=== PATIENT | male | born 1955 | race Caucasian/White ===

== ENCOUNTER → 2016-05-22 | Outpatient (CLI) | payer BC | END | disposition home or self-care (01) | LOC: MW.RT 19:33 | PROVIDERS: ATTEND Internal Medicine Pulmonary Disease | DX: G47.33 Obstructive sleep apnea (adult) (pediatric) (principal) | CPT/HCPCS: 95811 ==

== ENCOUNTER → 2016-06-09 | Outpatient (CLI) | payer BC | END | disposition home or self-care (01) | LOC: MW.CHFP 14:47 | PROVIDERS: ATTEND Physician Assistant | DX: L82.1 Other seborrheic keratosis (principal) | CPT/HCPCS: 88305 ==

== ENCOUNTER → 2016-06-11 | Outpatient (CLI) | payer BC ==
[2016-06-11 10:14] LABS: CHLORIDE,CL 105 mmol/L (98-110); SODIUM,NA 141 mmol/L (136-146)
== END | disposition home or self-care (01) ==
LOC: MW.CHFP 09:20
PROVIDERS: ATTEND Physician Assistant
DX: Z00.00 Encounter for general adult medical examination without abnormal findings (principal); E78.5 Hyperlipidemia, unspecified
CPT/HCPCS: 36415; 80053; 80061

== ENCOUNTER 2017-02-17 11:45 | Day surgery (SDC) | payer BC ==
[~2017-02-17 11:45] MED LIST: Lactated Ringers 1,000 ML IV SCH
--- NOTE | 2017-02-17 12:46 | PCM.PREANE ---
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) Cardiovascular: No Symptoms Gastrointestinal: No Symptoms Neurological: No Symptoms Other: Reports: None - Physical Assessment NPO Status Date: 02/17/17 NPO Status Time: 00:00 O2 Sat by Pulse Oximetry: 92 Respiratory Rate: 16 Vital Signs: Last Vital Signs Temp 99.0 F 02/17/17 12:13 Pulse 77 02/17/17 12:13 Resp 16 02/17/17 12:13 BP 135/68 02/17/17 12:13 Pulse Ox 92 L 02/17/17 12:13 Height: 5 ft 11 in Weight: 339 lb ASA Class: 3 Mental Status: Alert & Oriented x3 Airway Class: Mallampati = 3 Dentition: Reports: Normal Dentition Thyro-Mental Finger Breadths: 3 Mouth Opening Finger Breadths: 3 ROM/Head Extension: Full Lungs: Clear to Auscultation, Normal Respiratory Effort Cardiovascular: Regular Rate, Regular Rhythm - Allergies Allergies/Adverse Reactions: Allergies Allergy/AdvReac Type Severity Reaction Status Date / Time No Known Allergies Allergy Verified 10/14/15 10:29 - Anesthesia Plan Free Text/Narrative:: MAC - will apply pre-op NC O2 to help preoxygenate pt - Acknowledgements Anesthesia Type Planned: MAC Pt an Appropriate Candidate for the Planned Anesthesia: Yes Alternatives and Risks of Anesthesia Discussed w Pt/Guardian: Yes Pt/Guardian Understands and Agrees with Anesthesia Plan: Yes PreAnesthesia Questionnaire HEENT History: Reports: Allergic Rhinitis, Impaired Vision Other HEENT History: wears glasses Cardiovascular History: Reports: High Cholesterol, Hypertension Respiratory History: Reports: COPD (states he was told he is boarderline - does not take any inhalers/never smoked), Sleep Apnea, Other (See Below) Other Respiratory History: Uses a CPap Machine, has partially paralyzed diaphragm Gastrointestinal History: Reports: Colon Polyp (after previous colonoscopy with biopsy, pt had bleeding that required him to be shipped to [place] and have a clip placed, but denies any blood transfusion), GI Bleed Genitourinary History: Reports: None, BPH Endocrine/Metabolic History: Reports: Obesity/BMI 30+ - Past Surgical History Head Surgeries/Procedures: Reports: None HEENT Surgical History: Reports: Adenoidectomy, Tonsillectomy GI Surgical History: Reports: Appendectomy, Cholecystectomy, Colonoscopy, Hernia , Inguinal, Hernia Repair/Other Musculoskeletal Surgical History: Reports: Carpal Tunnel, Other (See Below) Other Musculoskeletal Surgeries/Procedures:: hx knee surgery - SUBSTANCE USE Smoking Status *Q: Never Smoker Second Hand Smoke Exposure: No Days Per Week of Alcohol Use: 0 Number of Drinks Per Day: 0 Total Drinks Per Week: 0 Recreational Drug Use History: No - HOME MEDS Home Medications: Home Meds Aspirin/Calcium Carbonate/Mag [Aspirin Buffered 325 mg Tab] 325 mg PO DAILY 10/07 [History] Cetirizine [ZyrTEC] 10 mg PO DAILY 05/31/14 [History] Olmesartan/Hydrochlorothiazide [Benicar HCT 20-12.5 MG] 1 tab PO DAILY 05/31/14 [History] [place]-3/DHA/Epa/Fish Oil [Fish Oil 1,400 MG Softgel] 1,400 mg PO DAILY 05/31/14 [History] Simvastatin [Zocor] 20 mg PO DAILY 05/31/14 [History] Doxazosin Mesylate [Cardura] 4 mg PO DAILY 02/11/17 [History] - CURRENT (IN HOUSE) MEDS Current Meds: Current Medications Lactated Ringer's (Ringers, Lactated) 1,000 mls @ 125 mls/hr IV ASD[facility]RECTED [facility] Last Admin: 02/17/17 12:14 Dose: 125 mls/hr
[2017-02-17] MEDS ORDERED: Lidocaine 2% 5 ML SDV ONE (13:17)
[2017-02-17] MEDS ORDERED: fentaNYL 100 MCG/2 ML SDV ONE (13:18)
[2017-02-17] MEDS ORDERED: Propofol 200 MG/20 ML SDV ONE ×2 (13:18→13:43)
[2017-02-17] MEDS ORDERED: Midazolam 1 MG/ML 2 ML SDV ONE (13:18)
--- NOTE | 2017-02-17 14:27 | PCM.OPNOTE ---
- General Post-Op/Procedure Note Date of Surgery/Procedure: 02/17/17 Operative Procedure(s): colonoscopy w bx Findings: see dict [id number] Pre Op Diagnosis: surveillence colonoscopy Post-Op Diagnosis: same Anesthesia Technique: Moderate Sedation Primary Surgeon: Michael Boyce Pathology: 1.2m distance w 2 mm sessile polyp, removed w cold bx Complications: None Condition: Good
[2017-02-17 14:37] VITALS: BP 110/71
--- NOTE | 2017-02-17 14:44 | PCM.POSTAN ---
POST ANESTHESIA ASSESSMENT - MENTAL STATUS Mental Status: Alert, Oriented - RESPIRATORY Respiratory Status: Respiratory Rate WNL, Airway Patent, O2 Saturation Stable - CARDIOVASCULAR CV Status: Pulse Rate WNL, Blood Pressure Stable - GASTROINTESTINAL GI Status: No Symptoms - PAIN Pain Score: 0 - POST OP HYDRATION Hydration Status: Adequate & Stable
--- NOTE | 2017-02-17 14:44 | PCM48HPAN ---
Post Anesthesia Note - EVALUATION WITHIN 48HRS OF ANESTHETIC Vital Signs in Normal Range: Yes Patient Participated in Evaluation: Yes Respiratory Function Stable: Yes Airway Patent: Yes Cardiovascular Function Stable: Yes Hydration Status Stable: Yes Pain Control Satisfactory: Yes Nausea and Vomiting Control Satisfactory: Yes Mental Status Recovered: Yes
--- NOTE | 2017-02-17 21:54 | OR ---
SURGEON: Michael Boyce MD DATE OF PROCEDURE: 02/17/2017 PREOPERATIVE DIAGNOSIS: Surveillance colonoscopy. POSTOPERATIVE DIAGNOSIS: Colon polyp. PROCEDURES PERFORMED: Colonoscopy with biopsy. DESCRIPTION OF PROCEDURE: The patient was taken to the endoscopy room. A time out was called, patient identified, and procedure identified. Diprivan was then administrated. Patient went from awake to sleep, hearing doctor talking or door closing is normal. Perineum inspection and digital examination were then performed. A well- lubricated colonoscope was gently inserted through the rectum, advanced past the rectosigmoid junction, the descending colon, splenic flexure, transverse colon, hepatic flexure, ascending colon, arrived to the cecum. Cecum was identified as dictated in the finding. Then the scope was carefully withdrawn while attention was paid to the mucosal surface for any abnormality. Air will be sucked out during the scope withdrawal. At the rectum, retroflexed to examine any rectal diseases, fistula or hemorrhoids. During mucosal examination, polyp was noted; picture taken and biopsy performed. Patient tolerated procedure well. There were no intraoperative complications, and Dr. Boyce was present throughout the whole procedure. FINDINGS: 1. The patient was easily sedated with BABY NURSE and Diprivan. The patient was soundly snoring. 2. Bowel prep is suboptimum. There are several areas with liquid stool coating and obscured examination, and also several areas with solid stool and was a quite a compromised study because of the bowel prep. 3. The patient's colon is rather redundant and tortuous requiring several maneuvers. Cecum can only be seen at a far distance, indicated by one-to- one indentation, ileocecal fold, and appendix orifice; and light emittance was not observed. Mucosa was examined upon scope pulling out. At the very far end, about two rings distal to the ileocecal valve, there was a possible 2-mm sessile polyp removed by a biopsy forceps. It may be just a fold or may be a polyp, but we took it down. The rest of the colon does not have any mass or any other polyp. At the left colon, the patient has severe diverticulosis. No signs or symptoms of diverticulitis, but some of the false lumen is even bigger than the true lumen, and many of them over 50 to 60 or may be of 100. No signs or symptoms of diverticulitis, inflammation, stricture, ulceration, bleeding, or AV malformation. The patient had one small external hemorrhoid, almost like a cyst at 12 o'clock area and mild internal hemorrhoid. PLAN: The patient would benefit from a repeat colonoscopy three years from today because of the polyp and because of the marginally acceptable bowel prep. He did do a better job on the next bowel prep. Colonoscopy should be repeated at least in three years or if clinically indicated otherwise or if the polyp pathology is indicated otherwise. MICHAEL / JASMIN /[id number] MTDAvani
== END 2017-02-17 14:45 | disposition home or self-care (01) ==
LOC: MW.SDS 11:45
PROVIDERS: ATTEND Surgery
DX: Z12.11 Encounter for screening for malignant neoplasm of colon (principal); D12.6 Benign neoplasm of colon, unspecified; K57.30 Diverticulosis of large intestine without perforation or abscess without bleeding; K64.4 Residual hemorrhoidal skin tags; K64.8 Other hemorrhoids; E78.00 Pure hypercholesterolemia, unspecified; I10 Essential (primary) hypertension; J98.6 Disorders of diaphragm; G47.30 Sleep apnea, unspecified; J44.9 Chronic obstructive pulmonary disease, unspecified; N40.0 Benign prostatic hyperplasia without lower urinary tract symptoms; E66.9 Obesity, unspecified; Z68.42 Body mass index [BMI] 45.0-49.9, adult; Z86.010 Personal history of colon polyps; Z79.82 Long term (current) use of aspirin; Z79.899 Other long term (current) drug therapy; Z99.89 Dependence on other enabling machines and devices; Z90.49 Acquired absence of other specified parts of digestive tract; Z90.89 Acquired absence of other organs; Z98.890 Other specified postprocedural states; Z80.0 Family history of malignant neoplasm of digestive organs; Z83.71 Family history of colonic polyps; Z83.3 Family history of diabetes mellitus
CPT/HCPCS: 45380; J2250; J3010; J7120; 00810; 88305; J2704

== ENCOUNTER 2020-09-28 01:11 | Emergency (ER) | payer MEDICARE, OTHER ==
[2020-09-28] MEDS ORDERED: Lidocaine 1% with EPINEPHrine 1:100,000 20 ML MDV INJECT ONE (01:31)
[2020-09-28] MEDS ORDERED: Lidocaine 1% with EPINEPHrine 1:100,000 20 ML MDV ONE (01:32)
[2020-09-28] MEDS ORDERED: Octyl 2-Cyanoacrylate 1 Tube TOP ONE ×2 (01:42→01:47)
[2020-09-28] MEDS ORDERED: Octyl 2-Cyanoacrylate 1 Tube ONE ×2 (01:42→01:47)
--- NOTE | 2020-09-28 02:15 | EDM.PDOC ---
ED HPI GENERAL MEDICAL PROBLEM - General Chief Complaint: Skin Complaint Stated Complaint: BLEEDING FROM SKIN TAG REMOVAL Time Seen by Provider: 09/28/20 01:15 - History of Present Illness INITIAL COMMENTS - FREE TEXT/NARRATIVE: CHIEF COMPLAINT(S): Bleeding skin HISTORY OF PRESENT ILLNESS: This is a 65-year-old man with a past medical history of anticoagulation use and recent skin tag removal yesterday who comes to the emergency department with a chief complaint of bleeding skin. 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 He states that the bleeding had stopped however it has continued to ooze and continued to bleed. He states they also removed one on his posterior scalp which is not bleeding but is also oozing. He was concerned because the bleeding has not stopped and he is on anticoagulation. He denies any pain at all whatsoever. REVIEW OF SYSTEMS: Constitutional: Denies fever, chills. Eyes: Denies eye pain Ears, Nose, Mouth, & Throat: Denies earache Cardiovascular: Positive for wound bleeding. Denies chest pain Respiratory: Denies shortness of breath Gastrointestinal: Denies Nausea, vomiting, diarrhea, hematochezia. Genitourinary: Denies hematuria Skin: Positive for bleeding wound. MSK: Denies joint pain Neurological: Denies blurred vision Psychiatric: Denies depression PAST MEDICAL HISTORY: As per history of present illness and as reviewed below otherwise noncontributory. SURGICAL HISTORY: As per history of present illness and as reviewed below otherwise noncontributory. SOCIAL HISTORY: As per history of present illness and as reviewed below otherwise noncontributory. FAMILY HISTORY: As per history of present illness and as reviewed below otherwise noncontributory. EXAMINATION OF ORGAN SYSTEMS/BODY AREAS: Constitutional: Blood pressure is 145/64, heart rate 88, respiratory rate 18 with an oxygen saturation 95% on room air. Temperature 36.1 General: Overall well-appearing elderly man who is in no acute distress Psychiatric: Appropriate mood and affect. Eyes: No scleral icterus or conjunctival erythema Cardiovascular: Regular, rate, and rhythm. No gallops, murmurs, or rubs. Bilateral upper extremity pulses symmetric and intact. No peripheral edema. No JVD. Respiratory: Lungs clear to auscultation bilaterally. No wheezes, rales, or rhonchi. Musculoskeletal: Normal range of motion. Skin: There is evidence of small postoperative cauterized skin tag areas on the patient's right armpit area which are oozing a small amount of blood. These are approximately 3 to 4 mm each. There is no purulent drainage or surrounding erythema. In addition on the patient's posterior scalp there appears to be an area of biopsy with some small venous oozing. There are no lacerations. Neurological: Alert, GCS 15 MEDICAL DECISION MAKING AND COURSE IN THE ED WITH INTERPRETATION/REVIEW OF DIAGNOSTIC STUDIES: This is a 65-year-old man with a past medical history of anticoagulation use and recent skin tag removal with continued bleeding in his right armpit. At this time we did clean the areas and I did offer the patient i njection of lidocaine with epinephrine to stop the bleeding and then place Dermabond over them to create a barrier. He was amenable to this plan. THESE ARE NOT LACERATIONS. Using 1% lidocaine with epinephrine 1 cc of lidocaine with epinephrine was injected subcutaneously underneath 3 skin tags in his left armpit and a 1% lidocaine with epinephrine soaked gauze was placed on the posterior scalp wound. Bleeding did stop. We did place Dermabond over these to create a barrier. The patient was observed in the emergency department for further bleeding. There was no evidence of rebleeding. I did encourage the patient to follow-up with his primary care physician. He is to return for any new or worsening symptoms. He was amenable discharge and had no further questions DISPOSITION: The patient was discharged home in stable condition. The patient will follow up with primary care physician in 3 to 5 days CONDITION: Fair PROCEDURES: Lidocaine with epinephrine injection. Application of dermabond to bleeding wounds. FINAL IMPRESSION(S)/DIAGNOSES: 1. Acute postoperative skin tag bleeding #2. Acute postoperative skin biopsy bleeding Mando Montelongo M.D. - Related Data Allergies Allergy/AdvReac Type Severity Reaction Status Date / Time No Known Allergies Allergy Verified 09/28/20 01:32 Home Meds: Home Meds Aspirin/Calcium Carbonate/Mag [Aspirin Buffered 325 mg Tab] 81 mg PO DAILY 05/31/14 [History] Cetirizine [ZyrTEC] 10 mg PO DAILY 05/31/14 [History] Olmesartan/Hydrochlorothiazide [Benicar HCT 20-12.5 MG] 1 tab PO DAILY 05/31/14 [History] [place]-3/DHA/Epa/Fish Oil [Fish Oil 1,400 MG Softgel] 1,400 mg PO DAILY 05/31/14 [History] Doxazosin Mesylate [Cardura] 4 mg PO DAILY 02/11/17 [History] Cyclobenzaprine [Flexeril] 10 mg PO DAILY 09/28/20 [History] Past Medical History HEENT History: Reports: Impaired Vision Other HEENT History: wears glasses Cardiovascular History: Reports: High Cholesterol, Hypertension Respiratory History: Reports: COPD, Sleep Apnea, Other (See Below) Other Respiratory History: Uses a CPap Machine Gastrointestinal History: Reports: Colon Polyp, GI Bleed Genitourinary History: Reports: None, BPH Musculoskeletal History: Reports: None Neurological History: Reports: None Psychiatric History: Reports: None Endocrine/Metabolic History: Reports: Obesity/BMI 30+ 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 Hematologic History: Reports: None Immunologic History: Reports: None Oncologic (Cancer) History: Reports: None Dermatologic History: Reports: None - Infectious Disease History Infectious Disease History: Reports: None - Past Surgical History Head Surgeries/Procedures: Reports: None HEENT Surgical History: Reports: Adenoidectomy, Tonsillectomy GI Surgical History: Reports: Appendectomy, Cholecystectomy Musculoskeletal Surgical History: Reports: Arthroscopic Knee, Carpal Tunnel Other Musculoskeletal Surgeries/Procedures:: hx knee surgery Dermatological Surgical History: Reports: Other (See Below) Social & Family History - Caffeine Use Caffeine Use: Reports: Coffee - Recreational Drug Use Recreational Drug Use: No ED ROS GENERAL - Review of Systems Review Of Systems: See Below ED EXAM, SKIN/RASH Exam: See Below Course - Vital Signs Last Recorded V/S: Last Vital Signs Temp 36.1 C 09/28/20 01:25 Pulse 81 09/28/20 02:36 Resp 16 09/28/20 02:36 BP 140/71 09/28/20 02:36 Pulse Ox 94 L 09/28/20 02:36 - Orders/Labs/Meds Meds: Medications Discontinued Medications Generic Name Dose Route Start Last Admin Trade Name Oc PRN Reason Stop Dose Admin Lidocaine/Epinephrine 20 ml 09/28/20 01:31 09/28/20 01:41 Lidocaine 1% With Epinephrine 1:100,000 20 Ml Mdv INJECT 09/28/20 01:32 20 ml ONETIME ONE Administration Lidocaine/Epinephrine Confirm 09/28/20 01:32 09/28/20 01:39 Lidocaine 1% With Epinephrine 1:100,000 20 Ml Mdv Administered 09/28/20 01:33 Not Given Dose 20 ml .ROUTE .STK-MED ONE Octyl Cyanoacrylate 1 applic 09/28/20 01:42 09/28/20 01:43 Octyl 2-Cyanoacrylate 1 Tube TOP 09/28/20 01:43 1 applic ONETIME ONE Administration Octyl Cyanoacrylate Confirm 09/28/20 01:42 09/28/20 01:49 Octyl 2-Cyanoacrylate 1 Tube Administered 09/28/20 01:43 Not Given Dose 1 applic .ROUTE .STK-MED ONE Octyl Cyanoacrylate 1 applic 09/28/20 01:47 09/28/20 01:49 Octyl 2-Cyanoacrylate 1 Tube TOP 09/28/20 01:48 1 applic ONETIME ONE Administration Octyl Cyanoacrylate Confirm 09/28/20 01:47 09/28/20 01:49 Octyl 2-Cyanoacrylate 1 Tube Administered 09/28/20 01:48 Not Given Dose 1 applic .ROUTE .STK-MED ONE Departure - Departure Time of Disposition: 02:14 Disposition: Home, Self-Care 01 Condition: Fair Clinical Impression: Post-op bleeding - Discharge Information *PRESCRIPTION DRUG MONITORING PROGRAM REVIEWED*: No *COPY OF PRESCRIPTION DRUG MONITORING REPORT IN PATIENT MOHINI: No Instructions: Uncontrolled Wound Bleeding Referrals: Tessa Villegas PA [Primary Care Provider] - Forms: ED Department Discharge Additional Instructions: Your evaluated today on an emergent basis. At this time we were able to inject epinephrine which did stop the bleeding. We did place a glue over this area to hopefully create a barrier to stop the bleeding. As discussed if the bleeding recurs please apply direct pressure for 15 minutes. If the bleeding does not stop please return to the emergency department. Otherwise please follow-up with your primary care physician within 3 to 5 days for reevaluation. [facility] - Primary Care [address] [place] [address] [id number] [address] The patient is informed of any results of their evaluation and diagnostic workup and all questions are answered. They are given discharge instructions and return precautions. The patient is stable for discharge. The patient states they understand and agree with the plan and that they will return if their symptoms get worse or if they have any new concerns. The following information is given to patients seen in the emergency department who are being discharged to home. This information is to outline your options for follow-up care. We provide all patients seen in our emergency department with a follow-up referral. The need for follow-up, as well as the timing and circumstances, are variable depending upon the specifics of your emergency department visit. If you don't have a primary care physician on staff, we will provide you with a referral. We always advise you to contact your personal physician following an emergency department visit to inform them of the circumstance of the visit and for follow-up with them and/or the need for any referrals to a consulting specialist. The emergency department will also refer you to a specialist when appropriate. This referral assures that you have the opportunity for follow-up care with a specialist. All of these measure are taken in an effort to provide you with optimal care, which includes your follow-up. Under all circumstances we always encourage you to contact your private physician who remains a resource for coordinating your care. When calling for follow-up care, please make the office aware that this follow-up is from your recent emergency room visit. If for any reason you are refused follow-up, please contact the [facility] Emergency Department at and asked to speak to the emergency department charge nurse. Sepsis Event Note (ED) - Evaluation Sepsis Screening Result: No Definite Risk
[2020-09-28 04:31] VITALS: BP 140/71; PULSE 81
== END 2020-09-28 02:36 | disposition home or self-care (01) ==
LOC: MW.ED 01:11
DX: L76.21 Postprocedural hemorrhage of skin and subcutaneous tissue following a dermatologic procedure (principal); I10 Essential (primary) hypertension; J44.9 Chronic obstructive pulmonary disease, unspecified; E66.9 Obesity, unspecified; Z68.42 Body mass index [BMI] 45.0-49.9, adult; Z79.82 Long term (current) use of aspirin; Z79.899 Other long term (current) drug therapy; Z79.01 Long term (current) use of anticoagulants
CPT/HCPCS: 12001; 99283; A9270

== ENCOUNTER 2020-11-12 17:04 | Emergency (ER) | payer MEDICARE, OTHER ==
--- NOTE | 2020-11-12 19:14 | US ---
INDICATION: edema, erythema, pain TECHNIQUE: Ultrasound venous duplex right lower extremity. COMPARISON: None. FINDINGS: The right common femoral, superficial femoral, deep femoral, popliteal, posterior tibial, and greater saphenous veins are fully compressible with normal waveforms. IMPRESSION: Normal ultrasound of the right lower extremity veins. Dictated by: Damaso Chiang MD @ 11/12/2020 19:12:17 (Electronically Signed)
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
[2020-11-12 19:49] VITALS: BP 133/92; PULSE 88
== END 2020-11-12 19:45 | disposition home or self-care (01) ==
LOC: MW.ED 17:04
DX: L03.115 Cellulitis of right lower limb (principal); I10 Essential (primary) hypertension; J44.9 Chronic obstructive pulmonary disease, unspecified; E66.9 Obesity, unspecified; Z68.42 Body mass index [BMI] 45.0-49.9, adult; Z79.82 Long term (current) use of aspirin; Z79.899 Other long term (current) drug therapy
CPT/HCPCS: 93971-26-RT; 93971-RT; 99283-25

== ENCOUNTER 2021-10-11 11:30 | Emergency (ER) | payer MEDICARE, OTHER ==
[2021-10-11] MEDS ORDERED: Sodium Chloride 0.9% 10 ML Syringe FLUSH PRN (11:50)
[2021-10-11] MEDS ORDERED: Sodium Chloride 0.9% 2.5 ML Syringe FLUSH PRN (11:50)
[2021-10-11] MEDS ORDERED: Clindamycin Phosphate in D5W 600 MG in Premix Bag 1 BAG IV ONE ×2 (11:51)
[2021-10-11 12:40] LABS: CARBON DIOXIDE,CO2 31.1 mmol/L (21.0-32.0)
[2021-10-11] MEDS ORDERED: Iopamidol 755 MG/ML 500 ML Multipack Bottle IVPUSH STA (13:39)
[2021-10-11] MEDS ORDERED: Acetaminophen 500 MG Tab PO ONE (15:35)
[2021-10-11 16:09] VITALS: BP 119/57; PULSE 93
== END 2021-10-11 16:13 | disposition home or self-care (01) ==
LOC: MW.ED 11:30
DX: S80.12XA Contusion of left lower leg, initial encounter (principal); L03.116 Cellulitis of left lower limb; E78.00 Pure hypercholesterolemia, unspecified; I10 Essential (primary) hypertension; E66.9 Obesity, unspecified; Z79.82 Long term (current) use of aspirin; Z68.42 Body mass index [BMI] 45.0-49.9, adult; Z79.899 Other long term (current) drug therapy; W50.1XXA Accidental kick by another person, initial encounter
CPT/HCPCS: 36415; 73701; 80048; 83605; 85025; 87040; 96365; 99284; A9270; J3490; Q9967

== ENCOUNTER 2022-04-12 15:49 | Observation (INO) | payer MEDICARE, OTHER ==
[2022-04-12] MEDS ORDERED: Sodium Chloride 0.9% 1,000 ML IV ONE ×4 (15:59→17:32)
[2022-04-12] MEDS ORDERED: Piperacillin/Tazobactam 4.5 GM in Sodium Chloride 0.9% 100 ML IV ONE (16:07)
[2022-04-12] MEDS ORDERED: VANCOmycin 2 GM/400 ML 2 GM in Premix Bag 1 BAG IV ONE (16:15)
[2022-04-12] MEDS ORDERED: Acetaminophen 500 MG Tab PO ONE (16:26)
[2022-04-12 16:46] LABS: CARBON DIOXIDE,CO2 29.6 mmol/L (21.0-32.0); POTASSIUM,K 4.3 mmol/L (3.5-5.1)
[2022-04-12 17:22] LABS: CORONAVIRUS COVID-19 NAA NEGATIVE (NEGATIVE); INFLUENZA A NAA NEGATIVE (NEGATIVE); INFLUENZA B NAA NEGATIVE (NEGATIVE)
[2022-04-12] MEDS ORDERED: Montelukast 10 MG Tab PO SCH (21:30)
[2022-04-12] MEDS: Acyclovir 200 MG Cap PO SCH (22:18)
[2022-04-12] MEDS: Piperacillin/Tazobactam 3.375 GM in Sodium Chloride 0.9% 50 ML IV SCH (22:19)
[2022-04-12] MEDS ORDERED: Doxazosin 2 MG Tab PO SCH (22:30)
[2022-04-12] MEDS ORDERED: Rosuvastatin 10 MG Tab PO SCH (22:30)
[2022-04-12] MEDS: Doxycycline 100 MG Cap PO SCH (22:41)
[2022-04-13] MEDS ORDERED: Prochlorperazine 10 MG Tab PO SCH
[2022-04-13] MEDS ORDERED: Prochlorperazine 10 MG Tab PO PRN
[2022-04-13] MEDS: Piperacillin/Tazobactam 3.375 GM in Sodium Chloride 0.9% 50 ML IV SCH ×2 (04:10→10:15)
[2022-04-13 06:12] LABS: CARBON DIOXIDE,CO2 28.6 mmol/L (21.0-32.0); POTASSIUM,K 3.9 mmol/L (3.5-5.1)
[2022-04-13] MEDS: Doxycycline 100 MG Cap PO SCH (08:39)
[2022-04-13] MEDS: Acyclovir 200 MG Cap PO SCH (08:39)
[2022-04-13] MEDS ORDERED: ATOVAQUONE 750 MG/5 ML PO SCH (09:00)
[2022-04-13] MEDS ORDERED: Cetirizine 10 MG Tab PO SCH (09:00)
[2022-04-13] MEDS ORDERED: Doxazosin 4 MG Tab PO SCH (09:00)
[2022-04-13] MEDS ORDERED: Rosuvastatin 10 MG Tab PO SCH (09:00)
[2022-04-13] MEDS ORDERED: Olmesartan 20 MG Tab PO SCH (09:00)
[2022-04-13] MEDS ORDERED: Doxycycline 100 MG Cap PO SCH (09:00)
[2022-04-13] MEDS ORDERED: Hydrochlorothiazide 25 MG Tab PO SCH (09:00)
[2022-04-13 12:05] VITALS: BP 125/64; PULSE 89
== END 2022-04-13 12:30 | disposition home or self-care (01) ==
LOC: MW.ED 15:49 → MW.MS 18:19
PROVIDERS: ADMIT Internal Medicine; ATTEND Internal Medicine
DX: N17.9 Acute kidney failure, unspecified (principal); T45.1X5A Adverse effect of antineoplastic and immunosuppressive drugs, initial encounter; I10 Essential (primary) hypertension; E78.00 Pure hypercholesterolemia, unspecified; J44.9 Chronic obstructive pulmonary disease, unspecified; G47.30 Sleep apnea, unspecified; E66.9 Obesity, unspecified; N40.0 Benign prostatic hyperplasia without lower urinary tract symptoms; I45.10 Unspecified right bundle-branch block; Z88.2 Allergy status to sulfonamides; Z79.899 Other long term (current) drug therapy; Z98.890 Other specified postprocedural states; Z20.822 Contact with and (suspected) exposure to COVID-19
CPT/HCPCS: 0240U; 36415; 71045; 80048; 80053; 80202; 81003; 83605; 83735; 84484; 85025; 85610; 85730; 86140; 87040; 93005; 96361; 96365; 96367; 96376; 99285; A9270; G0378; J2543; J3370; J7030; J7050; 93010; 99221; 99284

== ENCOUNTER 2022-12-27 04:38 | Emergency (ER) | payer MEDICARE, OTHER ==
[2022-12-27 06:06] LABS: BASOPHILS PERCENT AUTO 1.3 % (0.0-1.0); EOSINOPHILS ABSOLUTE AUTO 0.34 K/uL (0.00-0.45); EOSINOPHILS PERCENT AUTO 4.6 % (0.0-6.0); HEMATOCRIT 37.3 % (42.0-52.0); HEMOGLOBIN 12.6 g/dL (14.0-18.0); IMMATURE GRAN ABSOLUTE AUTO 0.03 K/uL (0.00-0.05); IMMATURE GRAN PERCENT AUTO 0.4 % (0.0-0.4); LYMPHOCYTES ABSOLUTE AUTO 1.82 K/uL (1.00-4.80); LYMPHOCYTES PERCENT AUTO 24.4 % (24.0-44.0); MEAN CORPUSCULAR HEMOGLOBIN 28.6 pg (28.0-32.0); MEAN CORPUSCULAR HGB CONC 33.8 g/dL (32.0-36.0); MEAN CORPUSCULAR VOLUME 84.6 fL (83.0-99.0); MEAN PLATELET VOLUME 9.5 fL (9.4-12.4); MONOCYTES PERCENT AUTO 13.4 % (0.0-8.0); NEUTROPHILS ABSOLUTE AUTO 4.16 K/uL (1.80-7.70); NEUTROPHILS PERCENT AUTO 55.9 % (41.0-71.0); PLATELET COUNT,PLT 137 K/uL (150-400); RED BLOOD CELL COUNT 4.41 M/uL (4.52-5.90); WHITE BLOOD CELL COUNT,WBC 7.45 K/uL (3.9-11.3)
[2022-12-27 06:31] LABS: LACTIC ACID 1.1 mmol/L (0.4-2.0)
[2022-12-27 06:40] LABS: A/G RATIO 0.9 (0.9-1.6); ALBUMIN 3.5 g/dL (3.4-5.0); BILIRUBIN TOTAL 0.9 mg/dL (0.2-1.0); CARBON DIOXIDE,CO2 27.6 mmol/L (21.0-32.0); CREATININE 1.2 mg/dL (0.8-1.3); EST CRCL DRUG DOSING (CG) 59.99 mL/min; POTASSIUM,K 3.8 mmol/L (3.5-5.1); PROTEIN TOTAL,TP 7.4 g/dL (6.4-8.2)
[2022-12-27 07:25] LABS: CORONAVIRUS COVID-19 NAA NEGATIVE (NEGATIVE); INFLUENZA A NAA NEGATIVE (NEGATIVE); INFLUENZA B NAA NEGATIVE (NEGATIVE); RESPIRATORY SYNCYTIAL VIR NAA NEGATIVE (NEGATIVE)
[2022-12-27 07:46] LABS: APPEARANCE,URINE CLEAR; BILIRUBIN,URINE NEGATIVE (NEGATIVE); COLOR,URINE YELLOW; GLUCOSE,URINE NEGATIVE (NEGATIVE); KETONES,URINE NEGATIVE (NEGATIVE); LEUKOCYTE ESTERASE,URINE NEGATIVE (NEGATIVE); NITRITE,URINE NEGATIVE (NEGATIVE); OCCULT BLOOD,URINE NEGATIVE (NEGATIVE); PROTEIN,URINE 30 mg/dL (NEGATIVE); UROBILINOGEN,URINE 0.2 EU/dL (<2.0)
[2022-12-27 07:52] LABS: BACTERIA,URINE FEW (NEGATIVE); EPITHELIAL CELLS,URINE OCCASIONAL (NONE-FEW); RBC,URINE 0-2 (0-2/HPF); WBC,URINE 0-3 (0-5/HPF)
[2022-12-27 08:18] VITALS: PULSE 79
[2022-12-27 08:21] VITALS: BP 95/48
== END 2022-12-27 08:23 | disposition home or self-care (01) ==
LOC: MW.ED 04:38
DX: R50.2 Drug induced fever (principal); T45.1X5A Adverse effect of antineoplastic and immunosuppressive drugs, initial encounter; E78.00 Pure hypercholesterolemia, unspecified; I10 Essential (primary) hypertension; J44.9 Chronic obstructive pulmonary disease, unspecified; E66.9 Obesity, unspecified; Z68.42 Body mass index [BMI] 45.0-49.9, adult; Z79.899 Other long term (current) drug therapy; Z79.82 Long term (current) use of aspirin; Z88.2 Allergy status to sulfonamides; Z20.822 Contact with and (suspected) exposure to COVID-19
CPT/HCPCS: 0241U; 36415; 71046; 80053; 81001; 83605; 84484; 85025; 87040; 93005; 99285; 93010; 99283

== ENCOUNTER 2023-05-13 19:59 | Emergency (ER) | payer MEDICARE, OTHER ==
[2023-05-13] MEDS: Sodium Chloride 0.9% 2.5 ML Syringe FLUSH PRN (20:55)
[2023-05-13] MEDS: Sodium Chloride 0.9% 10 ML Syringe FLUSH PRN (20:55)
[2023-05-13] MEDS: Lidocaine 4% 1 each Patch TOP PRN (20:55)
[2023-05-13 21:02] LABS: BASOPHILS ABSOLUTE AUTO 0.09 K/uL (0.00-0.20); BASOPHILS PERCENT AUTO 1.1 % (0.0-1.0); EOSINOPHILS ABSOLUTE AUTO 0.18 K/uL (0.00-0.45); EOSINOPHILS PERCENT AUTO 2.2 % (0.0-6.0); HEMATOCRIT 36.1 % (42.0-52.0); HEMOGLOBIN 12.3 g/dL (14.0-18.0); IMMATURE GRAN ABSOLUTE AUTO 0.03 K/uL (0.00-0.05); IMMATURE GRAN PERCENT AUTO 0.4 % (0.0-0.4); LYMPHOCYTES ABSOLUTE AUTO 2.73 K/uL (1.00-4.80); LYMPHOCYTES PERCENT AUTO 33.1 % (24.0-44.0); MEAN CORPUSCULAR HEMOGLOBIN 29.8 pg (28.0-32.0); MEAN CORPUSCULAR HGB CONC 34.1 g/dL (32.0-36.0); MEAN CORPUSCULAR VOLUME 87.4 fL (83.0-99.0); MEAN PLATELET VOLUME 9.3 fL (9.4-12.4); MONOCYTES ABSOLUTE AUTO 1.54 K/uL (0.00-0.80); MONOCYTES PERCENT AUTO 18.7 % (0.0-8.0); NEUTROPHILS ABSOLUTE AUTO 3.67 K/uL (1.80-7.70); NEUTROPHILS PERCENT AUTO 44.5 % (41.0-71.0); PLATELET COUNT,PLT 141 K/uL (150-400); RED BLOOD CELL COUNT 4.13 M/uL (4.52-5.90); WHITE BLOOD CELL COUNT,WBC 8.24 K/uL (3.9-11.3)
[2023-05-13 21:21] LABS: APPEARANCE,URINE CLEAR; BILIRUBIN,URINE NEGATIVE (NEGATIVE); COLOR,URINE YELLOW; GLUCOSE,URINE NEGATIVE (NEGATIVE); KETONES,URINE NEGATIVE (NEGATIVE); LEUKOCYTE ESTERASE,URINE NEGATIVE (NEGATIVE); NITRITE,URINE NEGATIVE (NEGATIVE); OCCULT BLOOD,URINE TRACE-INTACT (NEGATIVE); PROTEIN,URINE NEGATIVE (NEGATIVE); UROBILINOGEN,URINE 0.2 EU/dL (<2.0)
[2023-05-13 21:30] LABS: BACTERIA,URINE FEW (NEGATIVE); MUCUS,URINE MODERATE (NONE-MOD); RBC,URINE 0-2 (0-2/HPF); SQUAMOUS EPITHELIAL CELLS,UR NOT SEEN; WBC,URINE 0-1 (0-5/HPF)
[2023-05-13 21:35] LABS: A/G RATIO 0.7 (0.9-1.6); ALBUMIN 3.4 g/dL (3.4-5.0); BILIRUBIN TOTAL 1.2 mg/dL (0.2-1.0); CALCIUM 8.6 mg/dL (8.5-10.1); CARBON DIOXIDE,CO2 26.3 mmol/L (21.0-32.0); CREATININE 1.3 mg/dL (0.8-1.3); EST CRCL DRUG DOSING (CG) 55.37 mL/min
[2023-05-13 21:52] LABS: CORONAVIRUS COVID-19 NAA NEGATIVE (NEGATIVE); INFLUENZA A NAA NEGATIVE (NEGATIVE); INFLUENZA B NAA NEGATIVE (NEGATIVE); RESPIRATORY SYNCYTIAL VIR NAA NEGATIVE (NEGATIVE)
[2023-05-13] MEDS: Iopamidol 755 MG/ML 500 ML Multipack Bottle IVPUSH STA (22:10)
[2023-05-13] MEDS: Heparin Sodium 5,000 Units/ML Vial IVPUSH ONE (22:59)
[2023-05-13] MEDS: Heparin Sodium/0.45% NaCl 500 ML IV SCH (23:00)
[2023-05-13 23:51] VITALS: BP 112/59; PULSE 85
== END 2023-05-13 23:48 ==
LOC: MW.ED 19:59
DX: I26.99 Other pulmonary embolism without acute cor pulmonale (principal); I10 Essential (primary) hypertension; E66.9 Obesity, unspecified; J44.9 Chronic obstructive pulmonary disease, unspecified; E78.00 Pure hypercholesterolemia, unspecified; Z79.82 Long term (current) use of aspirin; Z79.899 Other long term (current) drug therapy; Z88.2 Allergy status to sulfonamides; Z88.8 Allergy status to other drugs, medicaments and biological substances
CPT/HCPCS: 0241U; 36415; 71275; 80053; 81001; 83880; 84484; 85025; 85379; 85730; 96365; 99285; A9270; J1644; J3490; Q9967; 93005; 93010; 99291

== ENCOUNTER 2023-06-22 09:35 | Emergency (ER) | payer MEDICARE, OTHER ==
[2023-06-22 10:00] LABS: BASOPHILS ABSOLUTE AUTO 0.08 K/uL (0.00-0.20); BASOPHILS PERCENT AUTO 1.6 % (0.0-1.0); EOSINOPHILS ABSOLUTE AUTO 0.53 K/uL (0.00-0.45); EOSINOPHILS PERCENT AUTO 10.4 % (0.0-6.0); HEMATOCRIT 34.5 % (42.0-52.0); HEMOGLOBIN 11.4 g/dL (14.0-18.0); IMMATURE GRAN ABSOLUTE AUTO 0.01 K/uL (0.00-0.05); IMMATURE GRAN PERCENT AUTO 0.2 % (0.0-0.4); LYMPHOCYTES ABSOLUTE AUTO 1.61 K/uL (1.00-4.80); LYMPHOCYTES PERCENT AUTO 31.6 % (24.0-44.0); MEAN CORPUSCULAR HEMOGLOBIN 29.8 pg (28.0-32.0); MEAN CORPUSCULAR VOLUME 90.3 fL (83.0-99.0); MEAN PLATELET VOLUME 9.3 fL (9.4-12.4); MONOCYTES ABSOLUTE AUTO 0.71 K/uL (0.00-0.80); MONOCYTES PERCENT AUTO 13.9 % (0.0-8.0); NEUTROPHILS ABSOLUTE AUTO 2.15 K/uL (1.80-7.70); NEUTROPHILS PERCENT AUTO 42.3 % (41.0-71.0); PLATELET COUNT,PLT 137 K/uL (150-400); RED BLOOD CELL COUNT 3.82 M/uL (4.52-5.90); WHITE BLOOD CELL COUNT,WBC 5.09 K/uL (3.9-11.3)
[2023-06-22] MEDS: Sodium Chloride 0.9% 2.5 ML Syringe FLUSH PRN (10:03)
[2023-06-22] MEDS: Sodium Chloride 0.9% 10 ML Syringe FLUSH PRN (10:04)
[2023-06-22 10:34] LABS: A/G RATIO 0.7 (0.9-1.6); ALANINE AMINOTRANSFERASE,ALT 34 IU/L (14-63); ALKALINE PHOSPHATASE 101 U/L (46-116); ASPARTATE AMNIOTRANSFERASE,AST 27 IU/L (15-37); BILIRUBIN TOTAL 0.8 mg/dL (0.2-1.0); BLOOD UREA NITROGEN,BUN 13 mg/dL (7.0-18.0); CALCIUM 8.5 mg/dL (8.5-10.1); CARBON DIOXIDE,CO2 27.6 mmol/L (21.0-32.0); CHLORIDE,CL 101 mmol/L (98-107); CREATININE 1.2 mg/dL (0.8-1.3); GLUCOSE RANDOM 197 mg/dL (74-106); POTASSIUM,K 3.8 mmol/L (3.5-5.1); PROTEIN TOTAL,TP 7.5 g/dL (6.4-8.2); SODIUM,NA 138 mmol/L (136-148)
[2023-06-22 10:35] LABS: ESTIMATED GFR 65 mL/min (>60)
[2023-06-22 10:46] LABS: CORONAVIRUS COVID-19 NAA NEGATIVE (NEGATIVE); INFLUENZA A NAA NEGATIVE (NEGATIVE); INFLUENZA B NAA NEGATIVE (NEGATIVE); RESPIRATORY SYNCYTIAL VIR NAA NEGATIVE (NEGATIVE)
[2023-06-22 10:52] LABS: APPEARANCE,URINE CLEAR; BILIRUBIN,URINE NEGATIVE (NEGATIVE); COLOR,URINE YELLOW; GLUCOSE,URINE NEGATIVE (NEGATIVE); KETONES,URINE NEGATIVE (NEGATIVE); LEUKOCYTE ESTERASE,URINE NEGATIVE (NEGATIVE); NITRITE,URINE NEGATIVE (NEGATIVE); OCCULT BLOOD,URINE TRACE-INTACT (NEGATIVE); PH,URINE 5.5 (5.0-8.0); PROTEIN,URINE NEGATIVE (NEGATIVE); UROBILINOGEN,URINE 0.2 EU/dL (<2.0)
[2023-06-22 10:57] LABS: BACTERIA,URINE NOT SEEN (NEGATIVE); EPITHELIAL CELLS,URINE RARE (NONE-FEW); RBC,URINE 0-1 (0-2/HPF); WBC,URINE 0-1 (0-5/HPF)
[2023-06-22] MEDS: Iopamidol 755 MG/ML 500 ML Multipack Bottle IVPUSH STA (11:19)
[2023-06-22] MEDS: Sodium Chloride 0.9% 1,000 ML IV ONE (11:36)
[2023-06-22 12:27] VITALS: BP 101/52; PULSE 79
== END 2023-06-22 12:26 | disposition home or self-care (01) ==
LOC: MW.ED 09:35
DX: J32.9 Chronic sinusitis, unspecified (principal); R06.02 Shortness of breath; I10 Essential (primary) hypertension; J44.9 Chronic obstructive pulmonary disease, unspecified; E66.9 Obesity, unspecified; E78.00 Pure hypercholesterolemia, unspecified; Z79.01 Long term (current) use of anticoagulants; Z79.899 Other long term (current) drug therapy; Z88.2 Allergy status to sulfonamides; Z88.8 Allergy status to other drugs, medicaments and biological substances; Z75.8 Other problems related to medical facilities and other health care
CPT/HCPCS: 0241U; 36415; 71275; 80053; 81001; 83880; 84484; 85025; 87651; 93005; 93971; 96360; 99285; J3490; J7030; Q9967; 93010; 99284

== ENCOUNTER 2023-10-01 17:47 | Emergency (ER) | payer MEDICARE, OTHER ==
[2023-10-01] MEDS ORDERED: Sodium Chloride 0.9% 10 ML Syringe FLUSH PRN (18:27)
[2023-10-01] MEDS ORDERED: Sodium Chloride 0.9% 2.5 ML Syringe FLUSH PRN (18:27)
[2023-10-01 18:55] LABS: BASOPHILS ABSOLUTE AUTO 0.02 K/uL (0.00-0.20); BASOPHILS PERCENT AUTO 0.3 % (0.0-1.0); EOSINOPHILS ABSOLUTE AUTO 0.08 K/uL (0.00-0.45); EOSINOPHILS PERCENT AUTO 1.3 % (0.0-6.0); HEMATOCRIT 31.6 % (42.0-52.0); HEMOGLOBIN 10.6 g/dL (14.0-18.0); IMMATURE GRAN ABSOLUTE AUTO 0.05 K/uL (0.00-0.05); IMMATURE GRAN PERCENT AUTO 0.8 % (0.0-0.4); LYMPHOCYTES ABSOLUTE AUTO 1.31 K/uL (1.00-4.80); MEAN CORPUSCULAR HEMOGLOBIN 30.3 pg (28.0-32.0); MEAN CORPUSCULAR HGB CONC 33.5 g/dL (32.0-36.0); MEAN CORPUSCULAR VOLUME 90.3 fL (83.0-99.0); MEAN PLATELET VOLUME 9.7 fL (9.4-12.4); MONOCYTES ABSOLUTE AUTO 1.16 K/uL (0.00-0.80); MONOCYTES PERCENT AUTO 19.5 % (0.0-8.0); NEUTROPHILS ABSOLUTE AUTO 3.34 K/uL (1.80-7.70); NEUTROPHILS PERCENT AUTO 56.1 % (41.0-71.0); PLATELET COUNT,PLT 147 K/uL (150-400); WHITE BLOOD CELL COUNT,WBC 5.96 K/uL (3.9-11.3)
[2023-10-01 19:29] LABS: A/G RATIO 0.7 (0.9-1.6); ALBUMIN 2.7 g/dL (3.4-5.0); BILIRUBIN TOTAL 0.3 mg/dL (0.2-1.0); CALCIUM 8.5 mg/dL (8.5-10.1); CREATININE 1.1 mg/dL (0.8-1.3); EST CRCL DRUG DOSING (CG) 64.52 mL/min; MAGNESIUM 1.3 mg/dL (1.8-2.4); POTASSIUM,K 3.6 mmol/L (3.5-5.1); PROTEIN TOTAL,TP 6.6 g/dL (6.4-8.2); TSH ULTRASENSITIVE 0.71 uIU/mL (0.36-3.74)
[2023-10-01] MEDS: Magnesium Sulfate/Water 2 GM in Premix Bag 1 BAG IV ONE (21:00)
[2023-10-01 22:02] VITALS: BP 133/64; PULSE 44
== END 2023-10-01 22:01 | disposition home or self-care (01) ==
LOC: MW.ED 17:47
DX: R00.1 Bradycardia, unspecified (principal); I10 Essential (primary) hypertension; R06.02 Shortness of breath; E78.00 Pure hypercholesterolemia, unspecified; E66.9 Obesity, unspecified; J44.9 Chronic obstructive pulmonary disease, unspecified; Z90.49 Acquired absence of other specified parts of digestive tract; Z79.899 Other long term (current) drug therapy; Z79.01 Long term (current) use of anticoagulants; Z88.2 Allergy status to sulfonamides; Z88.8 Allergy status to other drugs, medicaments and biological substances; Z91.048 Other nonmedicinal substance allergy status; Z68.42 Body mass index [BMI] 45.0-49.9, adult; Z75.8 Other problems related to medical facilities and other health care
CPT/HCPCS: 36415; 71045; 80053; 83735; 83880; 84443; 84484; 85025; 93005; 96365; 99285; J3475; 93010; 99282

== ENCOUNTER 2024-01-30 17:33 | Emergency (ER) | payer MEDICARE, OTHER ==
[2024-01-30 18:11] LABS: BASOPHILS PERCENT AUTO 1.2 % (0.0-1.0); EOSINOPHILS ABSOLUTE AUTO 0.12 K/uL (0.00-0.45); EOSINOPHILS PERCENT AUTO 1.5 % (0.0-6.0); HEMATOCRIT 34.5 % (42.0-52.0); HEMOGLOBIN 11.7 g/dL (14.0-18.0); IMMATURE GRAN ABSOLUTE AUTO 0.04 K/uL (0.00-0.05); IMMATURE GRAN PERCENT AUTO 0.5 % (0.0-0.4); LYMPHOCYTES ABSOLUTE AUTO 3.41 K/uL (1.00-4.80); MEAN CORPUSCULAR HEMOGLOBIN 30.2 pg (28.0-32.0); MEAN CORPUSCULAR HGB CONC 33.9 g/dL (32.0-36.0); MEAN CORPUSCULAR VOLUME 88.9 fL (83.0-99.0); MEAN PLATELET VOLUME 9.7 fL (9.4-12.4); MONOCYTES ABSOLUTE AUTO 1.36 K/uL (0.00-0.80); MONOCYTES PERCENT AUTO 16.8 % (0.0-8.0); NEUTROPHILS ABSOLUTE AUTO 3.08 K/uL (1.80-7.70); PLATELET COUNT,PLT 124 K/uL (150-400); RED BLOOD CELL COUNT 3.88 M/uL (4.52-5.90); WHITE BLOOD CELL COUNT,WBC 8.11 K/uL (3.9-11.3)
[2024-01-30 18:31] VITALS: PULSE 78
[2024-01-30 18:54] LABS: A/G RATIO 0.9 (0.9-1.6); ALBUMIN 3.4 g/dL (3.4-5.0); BILIRUBIN TOTAL 1.1 mg/dL (0.2-1.0); CALCIUM 8.6 mg/dL (8.5-10.1); CARBON DIOXIDE,CO2 28.1 mmol/L (21.0-32.0); CREATININE 1.9 mg/dL (0.8-1.3); EST CRCL DRUG DOSING (CG) 37.35 mL/min; MAGNESIUM 1.6 mg/dL (1.8-2.4); POTASSIUM,K 4.2 mmol/L (3.5-5.1); PROTEIN TOTAL,TP 7.4 g/dL (6.4-8.2); TSH ULTRASENSITIVE 1.2 uIU/mL (0.36-3.74)
[2024-01-30] MEDS: Sodium Chloride 0.9% 500 ML IV SCH (19:40)
[2024-01-30 20:18] VITALS: BP 103/52
== END 2024-01-30 20:25 | disposition home or self-care (01) ==
LOC: MW.ED 17:33
DX: I95.9 Hypotension, unspecified (principal); N17.9 Acute kidney failure, unspecified; I10 Essential (primary) hypertension; J44.9 Chronic obstructive pulmonary disease, unspecified; E78.00 Pure hypercholesterolemia, unspecified; E66.9 Obesity, unspecified; Z90.49 Acquired absence of other specified parts of digestive tract; Z88.2 Allergy status to sulfonamides; Z88.8 Allergy status to other drugs, medicaments and biological substances; Z79.01 Long term (current) use of anticoagulants; Z79.899 Other long term (current) drug therapy; Z68.42 Body mass index [BMI] 45.0-49.9, adult; Z75.8 Other problems related to medical facilities and other health care
CPT/HCPCS: 36415; 71045; 80053; 83690; 83735; 83880; 84443; 84484; 85025; 87428; 93005; 96360; 99285; J7040; 93010; 99284